=== PATIENT | female | born 1945 | race Caucasian/White ===

== ENCOUNTER → 2019-09-06 | Outpatient (CLI) | payer MEDICARE | LOC: CLIN-LAKE 08:00 | PROVIDERS: ATTEND Family Medicine | DX: F50.89 Other specified eating disorder (principal); R53.83 Other fatigue; R25.2 Cramp and spasm; Z86.19 Personal history of other infectious and parasitic diseases | CPT/HCPCS: 99214 ==

== ENCOUNTER 2021-02-24 22:20 | Emergency (ER) | payer MEDICARE ==
--- NOTE | 2021-02-24 22:32 | ERPHSYRPT ---
- History of Present Illness Time Seen by Provider: 02/24/21 22:32 Source: patient Exam Limitations: no limitations Physician History: This is a pleasant 75-year-old white female who is diabetic and has hypothyroidism and presents with 3-day history of "floaters" in the left eye. She did not notice them prior to that date. Patient has no pain. She did not experience a flash of light 3 days ago. She had a normal MRI of the brain just a couple weeks ago for an unrelated issue. She did not injure her head. Patient states that she can see fine out of the eye except for the floaters. She was concerned because of the sudden onset of the floaters. Timing/Duration: day(s) (3) Location: left eye Severity: none Apparent Injury: no Associated Symptoms: other Visual Assistive Devices: Glasses Chemical Exposure: No Trauma: No Welding Arc/Tanning Bed Exposure: No Allergies/Adverse Reactions: paroxetine [From Paxil] Allergy (Verified 02/24/21 22:28) Penicillins Allergy (Verified 02/24/21 22:28) Home Medications: Calcium Carbonate/Vitamin D3 [Calcium + Vitamin D Tablet] 1 each PO DAILY 03/27/12 [History] Levothyroxine Sodium 100 mcg PO DAILY 03/27/12 [History] Multivitamin [Multivitamins] 1 tab PO DAILY 03/27/12 [History] Simvastatin 20Mg 20 mg PO HS 03/27/12 [History] Liraglutide [Victoza 2-Robert] 1.8 mg SQ DAILY 09/08/19 [History] Aspirin 1 tab PO DAILY 02/24/21 [History] Hx Tetanus, Diphtheria Vaccination/Date Given: No Hx Influenza Vaccination/Date Given: No Hx Pneumococcal Vaccination/Date Given: No Travel Risk - International Travel Have you traveled outside of the country in past 3 weeks: No - Coronavirus Screening Are you exhibiting any of the following symptoms?: No Close contact with a COVID-19 positive Pt in past 14-21 Days: No - Vaccine Status Have you recieved a Covid-19 vaccination: Yes Corporate Trust Officer: Moderna - Review of Systems Constitutional: No Symptoms Eyes: Other (New onset floaters left eye) Ears, Nose, & Throat: No Symptoms Respiratory: No Symptoms Cardiac: No Symptoms Abdominal/Gastrointestinal: No Symptoms Genitourinary Symptoms: No Symptoms Musculoskeletal: No Symptoms Skin: No Symptoms Neurological: No Symptoms Psychological: No Symptoms Endocrine: No Symptoms Hematologic/Lymphatic: No Symptoms Immunological/Allergic: No Symptoms All Other Systems: Reviewed and Negative - Past Medical History Pertinent Past Medical History: Yes Neurological History: No Pertinent History ENT History: No Pertinent History Cardiac History: No Pertinent History, Hypertension Respiratory History: No Pertinent History Endocrine Medical History: Hypothyroidism Musculoskeletal History: Arthritis GI Medical History: No Pertinent History History: No Pertinent History Psycho-Social History: No Pertinent History Female Reproductive Disorders: Breast Cancer Other Medical History: HX OF CAROTID BLOCKAGE 40% - Past Surgical History Past Surgical History: Yes Neuro Surgical History: No Pertinent History Cardiac: No Pertinent History Respiratory: No Pertinent History Gastrointestinal: No Pertinent History Genitourinary: No Pertinent History Musculoskeletal: Joint Replacement Female Surgical History: Lumpectomy, Tubal Ligation Other Surgical History: RIGHT KNEE REPLACEMENT RADIATION AND AND CHEMO FOR BREAST SURGERY - Social History Smoking Status: Never smoker Exposure to second hand smoke: No Drug Use: none Patient Lives Alone: No - Nursing Vital Signs Nursing Vital Signs: Initial Vital Signs Temperature 98 F 02/24/21 22:21 Pulse Rate 94 H 02/24/21 22:21 Respiratory Rate 16 02/24/21 22:21 Blood Pressure 176/95 02/24/21 22:21 O2 Sat by Pulse Oximetry 97 02/24/21 22:21 Pain Scale Pain Intensity 0 - Physical Exam General Appearance: no apparent distress, alert Eye Exam: left eye: normal inspection, PERRL, EOMI, other (On ophthalmologic exam, optic disc appears normal vitreous, appears clear) Ears, Nose, Throat Exam: normal ENT inspection, moist mucous membranes Neck Exam: normal inspection, non-tender, supple, full range of motion Respiratory Exam: airway intact, No chest tenderness, No respiratory distress Gastrointestinal Exam: No tenderness Extremity Exam: normal inspection, normal range of motion, pelvis stable Neurologic: alert, oriented x 3, cooperative Skin Exam: normal color, warm, dry Lymphatic: No adenopathy SpO2 Interpretation: normal O2 Delivery: Room Air - Course Nursing assessment & vital signs reviewed: Yes - Progress Progress: unchanged Counseled pt/family regarding: diagnosis, need for follow-up - Departure Departure Disposition: Home Clinical Impression: Vitreous floaters of left eye Condition: Stable Critical Care Time: No Referrals: COURTNEY SANTOS [Primary Care Provider] - Additional Instructions: Continue all your medications as prescribed. Follow-up with an special education math teacher on 02/26/2021 to make arrangements for follow-up appointment and evaluation of your retina. Return to the emergency room if symptoms worsen. A list of special education math teacher was provided to you prior to discharging you from the emergency department.
[2021-02-24 23:28] VITALS: BP 125/99; PULSE 82; O2SAT 96
== END 2021-02-24 23:35 | disposition home or self-care (01) ==
LOC: ED 22:20
DX: H43.392 Other vitreous opacities, left eye (principal); E03.9 Hypothyroidism, unspecified; I10 Essential (primary) hypertension; Z85.3 Personal history of malignant neoplasm of breast
CPT/HCPCS: 99283